=== PATIENT | male | born 1960 | race African-American/Black ===

== ENCOUNTER 2021-06-13 09:57 | Emergency (ER) | payer OTHER ==
[~2021-06-13] VITALS: Ht 177.8 cm; Wt 84.0 kg
[2021-06-13 09:59] VITALS: BP 146/84
[2021-06-13] MEDS ORDERED: CYCLOBENZAPRINE 10MG TABLET PO ONE (10:30)
[2021-06-13] MEDS ORDERED: ACETAMINOPHEN 325MG TABLET PO ONE (10:30)
[2021-06-13] MEDS ORDERED: ACET-2708 MT (12:51)
[2021-06-13] MEDS ORDERED: CYCL10TA7 MT (13:21)
== END 2021-06-13 13:19 | disposition home or self-care (01) ==
LOC: ER 09:57
DX: S16.1XXA Strain of muscle, fascia and tendon at neck level, initial encounter (principal); E11.9 Type 2 diabetes mellitus without complications; I10 Essential (primary) hypertension; V43.52XA Car driver injured in collision with other type car in traffic accident, initial encounter; Y93.89 Activity, other specified; Y92.488 Other paved roadways as the place of occurrence of the external cause
CPT/HCPCS: 70486; 73030; 99284

== ENCOUNTER 2023-08-29 14:25 | Emergency (ER) | payer MEDICAID ==
[~2023-08-29] VITALS: Ht 180.3 cm; Wt 102.1 kg
[~2023-08-29 14:25] MED LIST: ACET-2708 MT; CYCL10TA21 MT
[2023-08-29 14:32] VITALS: O2SAT 100
[2023-08-29] MEDS ORDERED: ENOXAPARIN 60MG/0.6ML SYR SUBCUT ONE (17:00)
[2023-08-29 17:51] LABS: CHLORIDE 102 mEq/L (98-107); SODIUM 135 mEq/L (136-145)
[2023-08-29 17:52] LABS: CALCIUM 9.9 mg/dL (8.7-10.4); CARBON DIOXIDE 27 mEq/L (21-32)
[2023-08-29 17:57] LABS: CREATININE 0.9 mg/dL (0.6-1.3); GLUCOSE 194 mg/dL (70-105); UREA NITROGEN BLOOD 6 mg/dL (9-23)
[2023-08-29 18:00] LABS: BASOPHILS % 0.7 % (0.0-2.0); EOSINOPHILS % 1.9 % (0.0-5.0); HEMATOCRIT. 43.1 % (42.0-52.0); HEMOGLOBIN. 14.8 g/dL (14.0-18.0); LYMPHOCYTES % 36.8 % (20.0-50.0); MEAN CORPUSCULAR HEMOGLOBIN 31.2 pg (28.0-32.0); MEAN CORPUSCULAR HGB CONC 34.3 g/dL (31.0-37.0); MEAN CORPUSCULAR VOLUME 91.1 fL (80.0-94.0); MEAN PLATELET VOLUME 8.2 fl (7.4-10.4); MONOCYTES % 6.5 % (2.0-8.0); NEUTROPHILS % 54.1 % (40.0-76.0); PLATELET 163 x1000/uL (130-400); RED BLOOD CELL COUNT 4.73 mill/uL (4.7-6.1)
[2023-08-29] MEDS: ENOXAPARIN 100MG/ML SYR SUBCUT NR (18:02)
[2023-08-29] MEDS ORDERED: XAR15 MT (18:25)
[2023-08-29] MEDS ORDERED: RIVA20TA MT (18:25)
[2023-08-29 18:32] VITALS: BP 142/91; PULSE 80; RESP 18; TEMP 98.9
== END 2023-08-29 18:36 | disposition home or self-care (01) ==
LOC: ER 14:25
DX: I82.4Z1 Acute embolism and thrombosis of unspecified deep veins of right distal lower extremity (principal); E11.9 Type 2 diabetes mellitus without complications; I10 Essential (primary) hypertension
CPT/HCPCS: 99285; 93971; 80048; 85025; 36415; 96372; J1650

== ENCOUNTER → 2023-10-25 | Day surgery (SDC) | payer MEDICAID ==
[~2023-10-25] VITALS: Ht 182.9 cm; Wt 96.6 kg
[~2023-10-25] MED LIST changes: -ACET-2708 MT; +AMLO5TAB88 PO; +BUPIVACAINE HCL/PF 0.5% (5MG/ML) 10ML ONE; +CEFAZOLIN SODIUM 1000MG/VIAL ONE; -CYCL10TA21 MT; +FENTANYL CITRATE/PF 50MCG/ML 2ML VIAL ONE; +GABA-290 PO; +GLYCOPYRROLATE 0.2 MG/ML 2ML VIAL ONE; +LACTATED RINGERS 1,000 ML IV SCH; +LIDOCAINE HCL 1% 10 MG/ML 10ML VIAL ONE; +LISI-186 PO; +LORAZEPAM 2MG/ML INJ IV NR; +LORAZEPAM 2MG/ML INJ ONE; +MEPERIDINE HCL/PF 25MG/ML CPJ IV PRN; +MIDAZOLAM HCL 2 MG/2 ML VIAL ONE; +OMEG100017 PO; +OMEP20CA14 PO; +ONDANSETRON HCL 4MG/2ML INJ IV PRN; +ONDANSETRON HCL 4MG/2ML INJ ONE; +PROPOFOL 200MG/20ML VIAL IV ONE; +RIVA20TA MT; +ROCURONIUM BROMIDE 10MG/ML VIAL 5ML IV ONE; +SITA1TBM4 PO; +SKIN ADHESIVE 0.7 GM EA TOP ONE; +SODIUM CHLORIDE 0.9% 1,000 ML IV SCH; +SUCCINYLCHOLINE CHLORIDE 200MG/10ML IV ONE; +XAR15 MT
[2023-10-25] MEDS: HYDROMORPHONE HCL/PF 2MG/ML INJ IV PRN (11:42)
[2023-10-25] MEDS: FENTANYL CITRATE/PF 50MCG/ML 2ML VIAL IV PRN (11:51)
[2023-10-25] MEDS: LORAZEPAM 4MG/ML INJ IV ONE (12:27)
[2023-10-25 16:22] VITALS: BP 170/90; PULSE 76; RESP 22
== END | disposition home or self-care (01) ==
LOC: OR 07:25
PROVIDERS: ATTEND Surgery
DX: K80.10 Calculus of gallbladder with chronic cholecystitis without obstruction (principal); K85.10 Biliary acute pancreatitis without necrosis or infection; E78.5 Hyperlipidemia, unspecified; I10 Essential (primary) hypertension; E11.9 Type 2 diabetes mellitus without complications; K21.9 Gastro-esophageal reflux disease without esophagitis; Z79.899 Other long term (current) drug therapy; Z98.890 Other specified postprocedural states
CPT/HCPCS: 47562; 82962; 88304; J3010; J3490 ×4; J0690; J2060; J2250; J2405; J2704; J0330; J1170; J7030